=== PATIENT | male | born 1960 | race Caucasian/White ===

== ENCOUNTER → 2023-04-03 | Outpatient (CLI) | payer MEDICARE | END | disposition home or self-care (01) | LOC: CT 13:46 | PROVIDERS: ATTEND Internal Medicine Critical Care Medicine | DX: J84.10 Pulmonary fibrosis, unspecified (principal); N28.1 Cyst of kidney, acquired; Z95.1 Presence of aortocoronary bypass graft; M43.8X3 Other specified deforming dorsopathies, cervicothoracic region; K44.9 Diaphragmatic hernia without obstruction or gangrene; Z98.890 Other specified postprocedural states; R91.8 Other nonspecific abnormal finding of lung field | CPT/HCPCS: 71250 ==

== ENCOUNTER 2023-09-02 14:33 | Inpatient (IN) | payer MEDICARE ==
[~2023-09-02] VITALS: Ht 177.8 cm; Wt 88.9 kg
[~2023-09-02 14:33] MED LIST: AMLO5TAB88 PO; ERGO1250 PO; METH-818 PO; PANT40TA51 PO; ROSU40TA PO
[2023-09-02] MEDS ORDERED: ONDANSETRON HCL 4MG/2ML INJ IV PRN (16:30)
[2023-09-02] MEDS ORDERED: CLONIDINE 0.1MG TABLET PO PRN (16:30)
[2023-09-02] MEDS ORDERED: MAGNESIUM/ALUMINUM HYDROXIDE/SIMETHICONE 30ML UDC PO PRN (16:30)
[2023-09-02] MEDS ORDERED: ACETAMINOPHEN 325MG TABLET PO PRN (16:30)
[2023-09-02] MEDS ORDERED: DIPHENHYDRAMINE 50MG/ML VIAL IV PRN (16:30)
[2023-09-02] MEDS: METHADONE HCL 10MG TABLET PO SCH ×2 (17:20→21:27)
[2023-09-02 17:35] LABS: PROTHROMBIN TIME 11.1 sec (9.6-11.0)
[2023-09-02 17:53] VITALS: BP 124/77; PULSE 73; RESP 18; TEMP 98.4
[2023-09-02] MEDS: ENOXAPARIN 40MG/0.4ML SYR SUBCUT SCH (18:00)
[2023-09-02 20:00] VITALS: BP 143/79; PULSE 79; RESP 19; TEMP 97.9
[2023-09-02] MEDS: PREGABALIN 75MG CAPSULE PO SCH (21:24)
[2023-09-02] MEDS: PANTOPRAZOLE 40MG DR TABLET PO SCH (21:25)
[2023-09-02] MEDS: ATORVASTATIN CALCIUM 40MG TABLET PO SCH (21:26)
[2023-09-02] MEDS: SUCRALFATE 1G TABLET PO SCH (21:26)
[2023-09-02] MEDS: CLONAZEPAM 0.25 MG TAB.RAPDIS PO SCH (21:32)
[2023-09-03] VITALS: BP 138/84; PULSE 84; RESP 19; TEMP 97.7
[2023-09-03 04:00] VITALS: BP 140/78; PULSE 92; RESP 19; TEMP 98.9
[2023-09-03] MEDS: DEXT 5%/0.45% NACL 1000ML 1,000 ML IV SCH (06:32)
[2023-09-03 08:00] VITALS: BP 118/76; PULSE 102; RESP 19; TEMP 98.1
[2023-09-03] MEDS: MULTIVITAMINS,THER W-MINERALS TABLET PO SCH (09:07)
[2023-09-03] MEDS: PREGABALIN 50 MG CAPSULE PO SCH (09:12)
[2023-09-03] MEDS: PREDNISONE 5MG TABLET PO SCH (09:12)
[2023-09-03] MEDS: FISH OIL/OMEGA-3 FATTY ACIDS 1000MG CAPSULE PO SCH (09:13)
[2023-09-03] MEDS: AMLODIPINE 5MG TABLET PO SCH (09:13)
[2023-09-03] MEDS: CELECOXIB 200MG CAPSULE PO SCH (09:13)
[2023-09-03] MEDS: XELJANZ 11 MG PO SCH (09:18)
[2023-09-03 12:00] VITALS: BP 109/61; PULSE 70; RESP 18; TEMP 97.5
[2023-09-03] MEDS: ACETAMINOPHEN 325MG TABLET PO PRN (12:33)
[2023-09-03 16:00] VITALS: BP 120/69; PULSE 67; RESP 18; TEMP 96.6
[2023-09-03] MEDS ORDERED: POLYMYXIN B SULFATE 500000 UNITS/VIAL ONE (17:15)
[2023-09-03] MEDS ORDERED: LIDOCAINE HCL/EPINEPHRINE 1%-EPI 1:100,000 20 ML VIAL ONE (17:15)
[2023-09-03] MEDS ORDERED: VANCOMYCIN HCL 1 GM/VIAL ONE ×2 (17:15→19:22)
[2023-09-03] MEDS ORDERED: MIDAZOLAM HCL 2 MG/2 ML VIAL ONE (18:07)
[2023-09-03] MEDS ORDERED: PROPOFOL 200MG/20ML VIAL IV ONE (18:07)
[2023-09-03] MEDS ORDERED: FENTANYL CITRATE/PF 50MCG/ML 2ML VIAL ONE (18:07)
[2023-09-03] MEDS ORDERED: LIDOCAINE HCL 1% 10 MG/ML 10ML VIAL ONE (18:07)
[2023-09-03] MEDS ORDERED: HYDROMORPHONE HCL/PF 2MG/ML CPJ ONE (18:16)
[2023-09-03] MEDS ORDERED: LABETALOL 5MG/ML SYR 20 MG/4 ML SYRINGE IV PRN (18:45)
[2023-09-03] MEDS ORDERED: ONDANSETRON HCL 4MG/2ML INJ IV PRN (18:45)
[2023-09-03] MEDS ORDERED: MEPERIDINE HCL/PF 25MG/ML CPJ IV PRN (18:45)
[2023-09-03] MEDS: HYDROMORPHONE HCL/PF 2MG/ML CPJ IV PRN (21:00)
[2023-09-03] MEDS ORDERED: CEFAZOLIN SODIUM 2000MG/VIAL IJ SCH (22:00)
[2023-09-03] MEDS: CEFAZOLIN 2GM/100ML 100 ML IV SCH (23:04)
[2023-09-04] VITALS: BP 139/81; PULSE 92; RESP 19; TEMP 96.8
[2023-09-04] MEDS: HYDROCODONE/ACETAMINOPHEN 10/325MG TABLET PO PRN (00:42)
[2023-09-04 04:00] VITALS: BP 128/71; PULSE 91; RESP 19; TEMP 97.7
[2023-09-04 08:00] VITALS: BP 131/70; PULSE 86; RESP 19; TEMP 98.2
[2023-09-04 16:00] VITALS: BP 121/77; PULSE 72; RESP 19; TEMP 97.5
[2023-09-04 20:00] VITALS: BP 126/76; PULSE 87; RESP 18; TEMP 99.3
[2023-09-04] MEDS: TRAZODONE HCL 50MG TABLET PO PRN (23:25)
[2023-09-05] VITALS: BP 116/65; PULSE 86; RESP 18; TEMP 99.6
[2023-09-05 04:00] VITALS: BP 136/76; PULSE 78; RESP 18; TEMP 99.1
[2023-09-05 08:00] VITALS: BP 119/65; PULSE 75; RESP 19; TEMP 97.7
[2023-09-05 12:00] VITALS: BP 100/52; PULSE 72; RESP 18; TEMP 97.5
[2023-09-05 14:17] VITALS: BP 100/92; PULSE 72; TEMP 97.3
[2023-09-05 15:05] VITALS: BP 100/92; PULSE 72; RESP 18
[2023-09-08] MEDS ORDERED: ERGOCALCIFEROL 50000UNITS CAPSULE PO SCH (09:00)
== END 2023-09-05 15:16 | DRG 493 ==
LOC: 6EST 14:33
PROVIDERS: ADMIT Internal Medicine; ATTEND Internal Medicine
PROC: 0QSH04Z Reposition Left Tibia with Internal Fixation Device, Open Approach (ICD-10-PCS; principal; 2023-09-04)
PROC: 0QSK04Z Reposition Left Fibula with Internal Fixation Device, Open Approach (ICD-10-PCS; 2023-09-04)
DX: S82.392A Other fracture of lower end of left tibia, initial encounter for closed fracture (principal); J84.9 Interstitial pulmonary disease, unspecified; K21.9 Gastro-esophageal reflux disease without esophagitis; I10 Essential (primary) hypertension; S82.832A Other fracture of upper and lower end of left fibula, initial encounter for closed fracture; E78.00 Pure hypercholesterolemia, unspecified; F14.10 Cocaine abuse, uncomplicated; Z96.643 Presence of artificial hip joint, bilateral; X58.XXXA Exposure to other specified factors, initial encounter; Y93.89 Activity, other specified; Y92.89 Other specified places as the place of occurrence of the external cause; Y99.8 Other external cause status
CPT/HCPCS: 36415; 71045; 73610; 76000; 87426; 97162; 97166; J0690; J1170; J1650; J2250; J2704; J3010; J3370; J3490; J7030; J7512; Q4051; C1713

== ENCOUNTER 2023-09-05 15:56 | Inpatient (IN) | payer MEDICARE ==
[~2023-09-05] VITALS: Ht 177.8 cm; Wt 88.5 kg
[2023-09-05 15:30] VITALS: BP 122/63; PULSE 73; RESP 18; TEMP 98.1
[2023-09-05] MEDS ORDERED: CLONIDINE 0.1MG TABLET PO PRN (17:15)
[2023-09-05] MEDS ORDERED: DIPHENHYDRAMINE 50MG/ML VIAL IV PRN (17:15)
[2023-09-05] MEDS ORDERED: ONDANSETRON HCL 4MG/2ML INJ IV PRN (17:15)
[2023-09-05] MEDS ORDERED: MAGNESIUM/ALUMINUM HYDROXIDE/SIMETHICONE 30ML UDC PO PRN (17:15)
[2023-09-05] MEDS ORDERED: ACETAMINOPHEN 325MG TABLET PO PRN ×2 (17:15)
[2023-09-05] MEDS ORDERED: NALOXONE HCL 0.4MG/ML VIAL IV PRN (18:15)
[2023-09-05] MEDS: [UNRECOGNIZED DRUG - OTHER] PO SCH (18:30)
[2023-09-05 18:39] LABS: BASOPHILS % 0.8 % (0.0-2.0); EOSINOPHILS % 0.7 % (0.0-5.0); HEMATOCRIT. 30.5 % (42.0-52.0); LYMPHOCYTES % 6.7 % (20.0-50.0); MEAN CORPUSCULAR HEMOGLOBIN 28.6 pg (28.0-32.0); MEAN CORPUSCULAR HGB CONC 32.7 g/dL (31.0-37.0); MEAN CORPUSCULAR VOLUME 87.6 fL (80.0-94.0); MEAN PLATELET VOLUME 8.6 fl (7.4-10.4); MONOCYTES % 7.1 % (2.0-8.0); NEUTROPHILS % 84.7 % (40.0-76.0); PLATELET 303 x1000/uL (130-400); RED BLOOD CELL COUNT 3.48 mill/uL (4.7-6.1); RED CELL DISTRIBUTION WIDTH 17.7 % (11.6-14.6); WHITE BLOOD COUNT 8.7 x1000/uL (4.5-11.0)
[2023-09-05] MEDS: PREGABALIN 75MG CAPSULE PO SCH (18:39)
[2023-09-05 18:42] LABS: DIFFERENTIAL COMMENT 1
[2023-09-05 18:48] LABS: CHLORIDE 103 mEq/L (98-107); POTASSIUM 4.4 mEq/L (3.5-5.1); SODIUM 136 mEq/L (136-145)
[2023-09-05 18:49] LABS: CARBON DIOXIDE 27 mEq/L (21-32)
[2023-09-05 18:50] LABS: CALCIUM 9.9 mg/dL (8.7-10.4)
[2023-09-05 18:54] LABS: CREATININE 0.9 mg/dL (0.6-1.3)
[2023-09-05 18:55] LABS: GLUCOSE 115 mg/dL (70-105); UREA NITROGEN BLOOD 17 mg/dL (9-23)
[2023-09-05 20:00] VITALS: BP_SYST 100; BP_SYST 123; BP_DIAS 43; BP_DIAS 76; PULSE 80; PULSE 82; RESP 18; TEMP 98.6; TEMP 98.9
[2023-09-05] MEDS ORDERED: TRAZODONE HCL 50MG TABLET PO PRN (21:00)
[2023-09-05] MEDS: PANTOPRAZOLE 40MG DR TABLET PO SCH (21:24)
[2023-09-05] MEDS: METHADONE HCL 10MG TABLET PO SCH (21:24)
[2023-09-05] MEDS: CLONAZEPAM 0.25 MG TAB.RAPDIS PO SCH (21:24)
[2023-09-05] MEDS: ATORVASTATIN CALCIUM 40MG TABLET PO SCH (21:24)
[2023-09-05] MEDS: SUCRALFATE 1G TABLET PO SCH (21:24)
[2023-09-05] MEDS: ENOXAPARIN 40MG/0.4ML SYR SUBCUT SCH (21:25)
[2023-09-06] MEDS: HYDROCODONE/ACETAMINOPHEN 10/325MG TABLET PO PRN (04:41)
[2023-09-06] MEDS: DEXT 5%/0.45% NACL 1000ML 1,000 ML IV SCH (05:48)
[2023-09-06 08:00] VITALS: BP 123/65; PULSE 74; RESP 18; TEMP 97.2
[2023-09-06] MEDS: MULTIVITAMINS,THER W-MINERALS TABLET PO SCH (09:21)
[2023-09-06] MEDS: FISH OIL/OMEGA-3 FATTY ACIDS 1000MG CAPSULE PO SCH (09:21)
[2023-09-06] MEDS: PREDNISONE 5MG TABLET PO SCH (09:21)
[2023-09-06] MEDS: CELECOXIB 200MG CAPSULE PO SCH (09:23)
[2023-09-06] MEDS: PREGABALIN 50 MG CAPSULE PO SCH (09:23)
[2023-09-06] MEDS: AMLODIPINE 5MG TABLET PO SCH (09:23)
[2023-09-06] MEDS: METHADONE HCL 10MG TABLET PO SCH (15:00)
[2023-09-06] MEDS ORDERED: ENOXAPARIN 40MG/0.4ML SYR SUBCUT SCH (18:00)
[2023-09-06 20:00] VITALS: BP 108/66; PULSE 95; RESP 18; TEMP 97.5
[2023-09-07 08:00] VITALS: BP 115/67; PULSE 73; RESP 19; TEMP 98.3
[2023-09-07] MEDS ORDERED: *PATIENT'S OWN MEDICATION STORAGE XX SCH (17:15)
[2023-09-07 20:00] VITALS: BP 126/69; PULSE 65; RESP 18; TEMP 97.8
[2023-09-08 08:00] VITALS: BP 124/81; PULSE 75; RESP 19; TEMP 97.3
[2023-09-08] MEDS: ERGOCALCIFEROL 50000UNITS CAPSULE PO SCH (08:43)
[2023-09-08 20:00] VITALS: BP 129/75; PULSE 75; RESP 18; TEMP 98.1
[2023-09-09 08:00] VITALS: BP 105/65; PULSE 77; RESP 19; TEMP 96.7
[2023-09-09 20:00] VITALS: BP 122/66; PULSE 74; RESP 18; TEMP 98.9
[2023-09-10 04:32] VITALS: BP 123/63; PULSE 66; RESP 18
[2023-09-10] MEDS: CELECOXIB 200MG CAPSULE PO SCH (06:59)
[2023-09-10 08:00] VITALS: BP 122/64; PULSE 60; RESP 18; TEMP 97.2
[2023-09-10 19:37] VITALS: BP 127/77; PULSE 74; RESP 20; TEMP 96.9
[2023-09-11] MEDS: HYDROCODONE/ACETAMINOPHEN 10/325MG TABLET PO PRN (04:12)
[2023-09-11 08:00] VITALS: BP 111/62; PULSE 61; RESP 20; TEMP 97.9
[2023-09-11 20:00] VITALS: BP 107/70; PULSE 89; RESP 18; TEMP 99
[2023-09-12 08:00] VITALS: BP 115/72; PULSE 74; RESP 19; TEMP 99.4
[2023-09-12 20:00] VITALS: BP 133/70; PULSE 77; RESP 20; TEMP 97.5
[2023-09-13] MEDS: CELECOXIB 200MG CAPSULE PO SCH (06:00)
[2023-09-13 08:00] VITALS: BP 159/75; PULSE 71; RESP 19; TEMP 99
[2023-09-13 20:00] VITALS: BP 94/59; PULSE 68; RESP 22; TEMP 98.1
[2023-09-14 06:39] LABS: CARBON DIOXIDE 30 mEq/L (21-32); CHLORIDE 101 mEq/L (98-107); POTASSIUM 4.3 mEq/L (3.5-5.1); SODIUM 137 mEq/L (136-145)
[2023-09-14 06:40] LABS: CALCIUM 9.3 mg/dL (8.7-10.4)
[2023-09-14 06:45] LABS: GLUCOSE 71 mg/dL (70-105); UREA NITROGEN BLOOD 15 mg/dL (9-23)
[2023-09-14 07:22] LABS: BASOPHILS % 0.4 % (0.0-2.0); EOSINOPHILS % 1.5 % (0.0-5.0); HEMATOCRIT. 31.7 % (42.0-52.0); HEMOGLOBIN. 10.3 g/dL (14.0-18.0); LYMPHOCYTES % 8.2 % (20.0-50.0); MEAN CORPUSCULAR HEMOGLOBIN 27.9 pg (28.0-32.0); MEAN CORPUSCULAR HGB CONC 32.6 g/dL (31.0-37.0); MEAN CORPUSCULAR VOLUME 85.7 fL (80.0-94.0); MEAN PLATELET VOLUME 8.9 fl (7.4-10.4); NEUTROPHILS % 86.9 % (40.0-76.0); PLATELET 309 x1000/uL (130-400); RED CELL DISTRIBUTION WIDTH 18.4 % (11.6-14.6); WHITE BLOOD COUNT 8.4 x1000/uL (4.5-11.0)
[2023-09-14 08:00] VITALS: BP 106/59; PULSE 73; RESP 20; TEMP 98
[2023-09-14 19:46] VITALS: BP 124/60; PULSE 75; RESP 20; TEMP 97.5
[2023-09-15 08:00] VITALS: BP 110/44; PULSE 63; RESP 18; TEMP 97.7
[2023-09-15] MEDS ORDERED: NALOXONE HCL 0.4MG/ML VIAL IV PRN (15:45)
[2023-09-15] MEDS: METHADONE HCL 10MG TABLET PO SCH ×2 (15:46→21:04)
[2023-09-15 20:00] VITALS: BP 137/81; PULSE 94; RESP 18; TEMP 98.8
[2023-09-15] MEDS: CLONAZEPAM 0.5MG TABLET PO SCH (22:22)
[2023-09-16] MEDS: HYDROCODONE/ACETAMINOPHEN 10/325MG TABLET PO PRN (04:24)
[2023-09-16 08:00] VITALS: BP 126/69; PULSE 65; RESP 18; TEMP 97.2
[2023-09-16 08:25] VITALS: RESP 18
[2023-09-16] MEDS ORDERED: CLONAZEPAM 0.5MG TABLET PO SCH (09:00)
[2023-09-16 10:32] VITALS: BP 126/69; PULSE 65; TEMP 97.2; O2SAT 96
[2023-09-16 11:40] VITALS: BP 126/69; PULSE 65; TEMP 97.2; O2SAT 96
[2023-09-16] MEDS ORDERED: CLON0.5T4 PO ×2 (11:52→11:57)
[2023-09-16] MEDS ORDERED: PREG25CA19 PO (11:54)
[2023-09-16] MEDS ORDERED: HYDR-4350 PO (12:26)
== END 2023-09-16 12:35 | disposition home health service (06) | DRG 563 ==
PROVIDERS: ADMIT Psychiatry & Neurology Neurology; ATTEND Internal Medicine
DX: S82.832A Other fracture of upper and lower end of left fibula, initial encounter for closed fracture (principal); J84.9 Interstitial pulmonary disease, unspecified; E27.1 Primary adrenocortical insufficiency; F14.10 Cocaine abuse, uncomplicated; I10 Essential (primary) hypertension; K21.9 Gastro-esophageal reflux disease without esophagitis; G62.9 Polyneuropathy, unspecified; G89.4 Chronic pain syndrome; K44.9 Diaphragmatic hernia without obstruction or gangrene; D64.9 Anemia, unspecified; M85.80 Other specified disorders of bone density and structure, unspecified site; M79.651 Pain in right thigh; M72.2 Plantar fascial fibromatosis; E78.00 Pure hypercholesterolemia, unspecified; Z96.643 Presence of artificial hip joint, bilateral; Z91.81 History of falling; Z79.52 Long term (current) use of systemic steroids; W18.30XA Fall on same level, unspecified, initial encounter; Y93.89 Activity, other specified; Y92.89 Other specified places as the place of occurrence of the external cause; Y99.8 Other external cause status
CPT/HCPCS: 36415; 72192; 73590; 73700; 80048; 85025; 97110; 97150; 97162; 97166; 97530; 97535; 97542; J1650; J7512

== ENCOUNTER → 2023-11-16 | Outpatient (CLI) | payer MEDICARE ==
[~2023-11-16] MED LIST changes: +CLON0.5T4 PO; +HYDR-4350 PO; +PREG25CA19 PO
== END | disposition home or self-care (01) ==
LOC: RAD 13:00
DX: S82.302H Unspecified fracture of lower end of left tibia, subsequent encounter for open fracture type I or II with delayed healing (principal); S82.83 Other fracture of upper and lower end of fibula; X58.XXXD Exposure to other specified factors, subsequent encounter
CPT/HCPCS: 73590

== ENCOUNTER 2023-12-14 16:48 | Inpatient (IN) | payer MEDICARE ==
[~2023-12-14] VITALS: Ht 175.3 cm; Wt 90.7 kg
[2023-12-14] MEDS: SODIUM CHLORIDE 0.9% 1000ML BAG (SEPSIS BOLUS) IV ONE (18:26)
[2023-12-14] MEDS: CEFTRIAXONE 1GM/50ML 50 ML IV ONE (18:35)
[2023-12-14 18:44] LABS: HEMATOCRIT. 35.5 % (42.0-52.0); HEMOGLOBIN. 11.2 g/dL (14.0-18.0); MEAN CORPUSCULAR HEMOGLOBIN 26.1 pg (28.0-32.0); MEAN CORPUSCULAR HGB CONC 31.6 g/dL (31.0-37.0); MEAN CORPUSCULAR VOLUME 82.6 fL (80.0-94.0); PLATELET 452 x1000/uL (130-400); RED CELL DISTRIBUTION WIDTH 20.7 % (11.6-14.6); WHITE BLOOD COUNT 19.3 x1000/uL (4.5-11.0)
[2023-12-14 18:45] LABS: DIFFERENTIAL COMMENT 1
[2023-12-14 18:53] LABS: CHLORIDE 99 mEq/L (98-107); POTASSIUM 3.8 mEq/L (3.5-5.1); SODIUM 132 mEq/L (136-145)
[2023-12-14 18:54] LABS: CALCIUM 9.6 mg/dL (8.7-10.4); CARBON DIOXIDE 24 mEq/L (21-32)
[2023-12-14 18:55] LABS: INR 1.1; PARTIAL THROMBOPLASTIN TIME 31.8 sec (23.4-31.0); PROTHROMBIN TIME 12.5 sec (9.6-11.0)
[2023-12-14 18:59] LABS: GLUCOSE 148 mg/dL (70-105); TROPONIN I HIGH SENSITIVITY 9 ng/L (3.0-53); UREA NITROGEN BLOOD 18 mg/dL (9-23)
[2023-12-14 19:01] LABS: ALANINE AMINOTRANSFERASE 18 IU/L (10-49); ALBUMIN 4.5 g/dL (3.2-4.8); ASPARTATE AMINOTRANSFERASE 23 IU/L (<34); BILIRUBIN TOTAL 0.5 mg/dL (0.1-1.0); PROTEIN TOTAL 7.7 g/dL (6.0-8.3)
[2023-12-14] MEDS: AZITHROMYCIN 500MG/250ML 250 ML IV ONE (19:07)
[2023-12-14 19:27] LABS: PLATELET ESTIMATE NORMAL
[2023-12-14 19:42] LABS: CREATININE 1.4 mg/dL (0.6-1.3)
[2023-12-14 20:33] LABS: LACTIC ACID 3.7 mmol/L (0.4-2.0)
[2023-12-14] MEDS ORDERED: CLONIDINE 0.1MG TABLET PO PRN (20:45)
[2023-12-14] MEDS ORDERED: DOCUSATE SODIUM 100MG CAPSULE PO PRN (20:45)
[2023-12-14] MEDS ORDERED: ONDANSETRON HCL 4MG/2ML INJ IV PRN (20:45)
[2023-12-14] MEDS ORDERED: ACETAMINOPHEN 325MG TABLET PO PRN ×2 (20:45)
[2023-12-14] MEDS: SODIUM CHLORIDE 0.9% 1,000 ML IV SCH (21:07)
[2023-12-14 21:26] LABS: IRON 18 ug/dL (65-175)
[2023-12-14 21:32] LABS: FOLIC ACID (FOLATE) SERUM 17.27 ng/mL (>5.38)
[2023-12-14 21:33] LABS: VITAMIN B12 SERUM 1591 pg/mL (211-911)
[2023-12-14 21:39] VITALS: PULSE 77; RESP 20; O2SAT 97
[2023-12-14] MEDS: IPRATROPIUM/ALBUTEROL 0.5-3(2.5)MG/3ML NEB HHN PRN (21:39)
[2023-12-14 21:57] LABS: TOTAL IRON BINDING CAPACITY > 670 ug/dl (250-425)
[2023-12-14 23:30] LABS: CREATINE KINASE 25 IU/L (46-171)
[2023-12-15] MEDS: ASPIRIN 81MG EC TABLET PO SCH (01:27)
[2023-12-15] MEDS: FAMOTIDINE 20MG TABLET PO SCH (07:50)
[2023-12-15] MEDS: FERROUS SULFATE 325MG TABLET PO SCH (10:19)
[2023-12-15] MEDS: CEFTRIAXONE 1GM/50ML 50 ML IV SCH (12:25)
[2023-12-15 13:17] LABS: HEMATOCRIT. 35.1 % (42.0-52.0); HEMOGLOBIN. 10.6 g/dL (14.0-18.0); MEAN CORPUSCULAR HEMOGLOBIN 25.4 pg (28.0-32.0); MEAN CORPUSCULAR HGB CONC 30.3 g/dL (31.0-37.0); MEAN CORPUSCULAR VOLUME 83.9 fL (80.0-94.0); MEAN PLATELET VOLUME 8.9 fl (7.4-10.4); PLATELET 351 x1000/uL (130-400); RED BLOOD CELL COUNT 4.18 mill/uL (4.7-6.1); RED CELL DISTRIBUTION WIDTH 21.5 % (11.6-14.6); WHITE BLOOD COUNT 12.5 x1000/uL (4.5-11.0)
[2023-12-15 13:24] LABS: CARBON DIOXIDE 22 mEq/L (21-32); CHLORIDE 106 mEq/L (98-107); DIFFERENTIAL COMMENT 1; SODIUM 135 mEq/L (136-145)
[2023-12-15 13:25] LABS: CALCIUM 8.7 mg/dL (8.7-10.4)
[2023-12-15 13:30] LABS: GLUCOSE 91 mg/dL (70-105); TRIGLYCERIDE 149 mg/dL (0-150); UREA NITROGEN BLOOD 11 mg/dL (9-23)
[2023-12-15 13:31] LABS: CREATINE KINASE 49 IU/L (46-171); LDL CHOLESTEROL 26 mg/dL (5-100)
[2023-12-15 13:32] LABS: ALBUMIN 3.7 g/dL (3.2-4.8); CHOLESTEROL 69 mg/dL (<200); HDL CHOLESTEROL < 20 mg/dL (>55)
[2023-12-15 13:34] LABS: T4 FREE 1.02 ng/dL (0.89-1.76); THYROID STIMULATING HORMONE 2.58 uIU/mL (0.55-4.78)
[2023-12-15] MEDS: AZITHROMYCIN 500MG/250ML 250 ML IV SCH (14:23)
[2023-12-15 14:36] VITALS: PULSE 72; RESP 18; O2SAT 98
[2023-12-15] MEDS: IPRATROPIUM/ALBUTEROL 0.5-3(2.5)MG/3ML NEB HHN SCH (14:36)
[2023-12-15] MEDS: AZATHIOPRINE 50MG TABLET PO SCH (15:00)
[2023-12-15] MEDS: CLONAZEPAM 0.5MG TABLET PO SCH ×2 (15:00→22:33)
[2023-12-15 15:48] LABS: ANISOCYTOSIS 3+; HYPOCHROMASIA 1+; PLATELET ESTIMATE NORMAL
[2023-12-15 17:00] VITALS: BP 137/75; PULSE 127; RESP 20; TEMP 36.114; O2SAT 92
[2023-12-15 18:00] VITALS: BP 137/75; PULSE 100; RESP 20; TEMP 36.5292
[2023-12-15 20:00] VITALS: BP 137/65; PULSE 58; RESP 19; TEMP 36.83628
[2023-12-15] MEDS ORDERED: MEDICATION NOT ON FORMULARY EA (Rosuvastatin Calcium (Crestor) 40 MG) PO SCH (21:00)
[2023-12-15 22:26] LABS: CLARITY URINE CLOUDY (CLEAR); COLOR URINE DARK YELLOW (YELLOW); GLUCOSE URINE NEGATIVE (NEGATIVE); KETONES URINE NEGATIVE (NEGATIVE); LEUKOCYTE ESTERASE URINE NEGATIVE (NEGATIVE); NITRITE URINE NEGATIVE (NEGATIVE); OCCULT BLOOD URINE 1+ (NEGATIVE); PROTEIN URINE 2+ (NEGATIVE); SPECIFIC GRAVITY URINE 1.014 (1.005-1.030)
[2023-12-15] MEDS: METHADONE HCL 10MG TABLET PO SCH (22:32)
[2023-12-15] MEDS: ATORVASTATIN CALCIUM 40MG TABLET PO SCH (22:33)
[2023-12-15] MEDS: SUCRALFATE 1G TABLET PO SCH (22:33)
[2023-12-15] MEDS: PREDNISONE 10MG TABLET PO SCH (22:34)
[2023-12-15 22:39] LABS: BACTERIA URINE 2+; SQUAMOUS EPITHELIAL CELL URINE 1+ /lpf (RARE/1+)
[2023-12-15 22:40] LABS: WBC URINE 0-2 /hpf (0-2)
[2023-12-15 22:42] LABS: AMORPHOUS SEDIMENT URINE 1+ /lpf; COARSE GRANULAR CASTS URINE 0-5 /lpf
[2023-12-15 23:55] VITALS: PULSE 118; RESP 18; O2SAT 92
[2023-12-16] VITALS (9 sets, daily range): BP systolic 97–118; BP diastolic 50–65; PULSE 76–106; RESP 18–20; TEMP 24.4464–36.55848; O2SAT 96–99
[2023-12-16] MEDS: PANTOPRAZOLE 40MG DR TABLET PO SCH (06:24)
[2023-12-16 06:54] LABS: HEMATOCRIT 32.6 % (42.0-52.0); MEAN CORPUSCULAR HEMOGLOBIN 25.7 pg (28.0-32.0); MEAN CORPUSCULAR HGB CONC 30.8 g/dL (31.0-37.0); MEAN CORPUSCULAR VOLUME 83.3 fL (80.0-94.0); PLATELET 403 x1000/uL (130-400); RED BLOOD CELL COUNT 3.91 mill/uL (4.7-6.1); WHITE BLOOD COUNT 16.4 x1000/uL (4.5-11.0)
[2023-12-16 06:59] LABS: POTASSIUM 4.6 mEq/L (3.5-5.1)
[2023-12-16 07:01] LABS: CALCIUM 9.2 mg/dL (8.7-10.4)
[2023-12-16 07:05] LABS: CREATININE 1.3 mg/dL (0.6-1.3)
[2023-12-16] MEDS: AMLODIPINE 5MG TABLET PO SCH (09:00)
[2023-12-16] MEDS: CELECOXIB 200MG CAPSULE PO SCH (10:48)
[2023-12-16] MEDS: MULTIVITAMINS,THER W-MINERALS TABLET PO SCH (10:49)
[2023-12-16] MEDS: XELJANZ 11 MG PO SCH (10:50)
[2023-12-16] MEDS: PREGABALIN 50 MG CAPSULE PO SCH (10:50)
[2023-12-16] MEDS: CEFTRIAXONE 1GM/50ML 50 ML IV SCH (13:02)
[2023-12-16] MEDS: AZITHROMYCIN 500MG/250ML 250 ML IV SCH (14:41)
[2023-12-17] VITALS (11 sets, daily range): BP systolic 95–126; BP diastolic 56–74; PULSE 8–100; RESP 18–20; TEMP 33.8916–36.61404; O2SAT 93–99
[2023-12-17 06:56] LABS: HEMATOCRIT 27.1 % (42.0-52.0); HEMOGLOBIN 8.6 g/dL (14.0-18.0); MEAN CORPUSCULAR HEMOGLOBIN 25.9 pg (28.0-32.0); MEAN CORPUSCULAR HGB CONC 31.6 g/dL (31.0-37.0); MEAN CORPUSCULAR VOLUME 81.8 fL (80.0-94.0); PLATELET 316 x1000/uL (130-400); RED BLOOD CELL COUNT 3.31 mill/uL (4.7-6.1); WHITE BLOOD COUNT 9.4 x1000/uL (4.5-11.0)
[2023-12-17 07:00] LABS: CHLORIDE 106 mEq/L (98-107); POTASSIUM 3.5 mEq/L (3.5-5.1); SODIUM 137 mEq/L (136-145)
[2023-12-17 07:01] LABS: CALCIUM 8.7 mg/dL (8.7-10.4); CARBON DIOXIDE 23 mEq/L (21-32)
[2023-12-17 07:06] LABS: ALBUMIN 3.3 g/dL (3.2-4.8); CREATININE 1.1 mg/dL (0.6-1.3); GLUCOSE 124 mg/dL (70-105); UREA NITROGEN BLOOD 15 mg/dL (9-23)
[2023-12-17 07:26] LABS: PREALBUMIN < 5.0 mg/dl (10.0-40.0)
[2023-12-17] MEDS: GUAIFENESIN/DM 600MG/30MG ER TAB 12HR PO PRN (13:36)
[2023-12-17] MEDS: SODIUM CHLORIDE 3% FOR INH 4ML NEB INH SCH (20:25)
[2023-12-18] VITALS (10 sets, daily range): BP systolic 120–147; BP diastolic 60–75; PULSE 73–90; RESP 15–20; TEMP 36.16956–36.83628; O2SAT 19–100
[2023-12-18] MEDS: ACETYLCYSTEINE 200MG/ML 20% VIAL 4ML INH SCH (00:53)
[2023-12-18 10:19] LABS: HEMATOCRIT 30.7 % (42.0-52.0); HEMOGLOBIN 9.6 g/dL (14.0-18.0); MEAN CORPUSCULAR HEMOGLOBIN 25.8 pg (28.0-32.0); MEAN CORPUSCULAR HGB CONC 31.2 g/dL (31.0-37.0); MEAN CORPUSCULAR VOLUME 82.8 fL (80.0-94.0); PLATELET 372 x1000/uL (130-400); RED BLOOD CELL COUNT 3.71 mill/uL (4.7-6.1); RED CELL DISTRIBUTION WIDTH 20.5 % (11.6-14.6); WHITE BLOOD COUNT 10.5 x1000/uL (4.5-11.0)
[2023-12-18 10:32] LABS: CARBON DIOXIDE 28 mEq/L (21-32); CHLORIDE 105 mEq/L (98-107); POTASSIUM 3.9 mEq/L (3.5-5.1); SODIUM 140 mEq/L (136-145)
[2023-12-18 10:34] LABS: CALCIUM 9.3 mg/dL (8.7-10.4)
[2023-12-18 10:38] LABS: CREATININE 1.1 mg/dL (0.6-1.3); GLUCOSE 80 mg/dL (70-105); UREA NITROGEN BLOOD 13 mg/dL (9-23)
[2023-12-19] VITALS (9 sets, daily range): BP systolic 125–150; BP diastolic 67–90; PULSE 78–94; RESP 16–20; TEMP 36.114–36.6696; O2SAT 95–98
[2023-12-19 06:45] LABS: HEMATOCRIT 29.3 % (42.0-52.0); HEMOGLOBIN 9.3 g/dL (14.0-18.0); MEAN CORPUSCULAR HGB CONC 31.7 g/dL (31.0-37.0); MEAN CORPUSCULAR VOLUME 82.1 fL (80.0-94.0); PLATELET 397 x1000/uL (130-400); RED BLOOD CELL COUNT 3.57 mill/uL (4.7-6.1); RED CELL DISTRIBUTION WIDTH 20.6 % (11.6-14.6); WHITE BLOOD COUNT 11.8 x1000/uL (4.5-11.0)
[2023-12-19 06:54] LABS: CHLORIDE 104 mEq/L (98-107); POTASSIUM 3.3 mEq/L (3.5-5.1); SODIUM 137 mEq/L (136-145)
[2023-12-19 06:55] LABS: CARBON DIOXIDE 28 mEq/L (21-32)
[2023-12-19 06:56] LABS: CALCIUM 9.2 mg/dL (8.7-10.4)
[2023-12-19 07:00] LABS: CREATININE 0.8 mg/dL (0.6-1.3); GLUCOSE 67 mg/dL (70-105)
[2023-12-19 07:01] LABS: UREA NITROGEN BLOOD 9 mg/dL (9-23)
[2023-12-19] MEDS ORDERED: IOHEXOL-300 100 ML BOTTLE ONE (10:58)
[2023-12-19] MEDS ORDERED: CEPH500T MT (13:34)
== END 2023-12-19 18:46 | disposition home or self-care (01) | DRG 871 ==
LOC: ER 16:48 → MICUSO 18:26 → 5WST 12-15 11:22 → 7EST 12-15 16:48
PROVIDERS: ADMIT Hospitalist; ATTEND Hospitalist
DX: A41.9 Sepsis, unspecified organism (principal); D65 Disseminated intravascular coagulation [defibrination syndrome]; J18.9 Pneumonia, unspecified organism; J96.01 Acute respiratory failure with hypoxia; E87.1 Hypo-osmolality and hyponatremia; N17.9 Acute kidney failure, unspecified; E87.20 Acidosis, unspecified; J90 Pleural effusion, not elsewhere classified; D75.839 Thrombocytosis, unspecified; L40.50 Arthropathic psoriasis, unspecified; Z20.822 Contact with and (suspected) exposure to COVID-19; I25.10 Atherosclerotic heart disease of native coronary artery without angina pectoris; D50.9 Iron deficiency anemia, unspecified; I10 Essential (primary) hypertension; K21.9 Gastro-esophageal reflux disease without esophagitis; R79.89 Other specified abnormal findings of blood chemistry; B96.20 Unspecified Escherichia coli [E. coli] as the cause of diseases classified elsewhere; J45.909 Unspecified asthma, uncomplicated; K40.90 Unilateral inguinal hernia, without obstruction or gangrene, not specified as recurrent; K44.9 Diaphragmatic hernia without obstruction or gangrene; R32 Unspecified urinary incontinence; Z96.643 Presence of artificial hip joint, bilateral; L89.521 Pressure ulcer of left ankle, stage 1; G90.8 Other disorders of autonomic nervous system; Z95.1 Presence of aortocoronary bypass graft
CPT/HCPCS: 36415; 71045; 71250; 71260; 80048; 80053; 80061; 81003; 82040; 82270; 82550; 82607; 82746; 83540; 83550; 83605; 83880; 84134; 84145; 84153; 84439; 84443; 84484; 85025; 85027; 85379; 87070; 87077; 87186; 87420; 87426; 87804; 93005; 93970; 94640; 99285; J0456; J0696; J7030; J7500; J7512; J7608; Q9967

== ENCOUNTER 2023-12-23 10:39 | Inpatient (IN) | payer MEDICARE ==
[~2023-12-23] VITALS: Ht 177.8 cm; Wt 86.2 kg
[2023-12-23] MEDS: ACETYLCYSTEINE 200MG/ML 20% VIAL 4ML INH SCH (02:35)
[~2023-12-23 10:39] MED LIST changes: +CEPH500T MT; -METH-818 PO
[2023-12-23 12:30] VITALS: BP 132/75; PULSE 77; RESP 16; TEMP 37.39188; O2SAT 98
[2023-12-23] MEDS ORDERED: DOCUSATE SODIUM 100MG CAPSULE PO PRN (13:15)
[2023-12-23] MEDS ORDERED: ONDANSETRON HCL 4MG/2ML INJ IV PRN (13:15)
[2023-12-23] MEDS ORDERED: ACETAMINOPHEN 325MG TABLET PO PRN ×2 (13:15)
[2023-12-23] MEDS ORDERED: CLONIDINE 0.1MG TABLET PO PRN (13:15)
[2023-12-23] MEDS ORDERED: IPRATROPIUM/ALBUTEROL 0.5-3(2.5)MG/3ML NEB HHN PRN (13:15)
[2023-12-23 14:59] VITALS: BP 132/75; PULSE 77; RESP 16; TEMP 37.4188
[2023-12-23 16:00] VITALS: BP 131/72; PULSE 74; RESP 18; TEMP 36.61404; O2SAT 93
[2023-12-23 16:42] LABS: CHLORIDE 102 mEq/L (98-107); POTASSIUM 4.4 mEq/L (3.5-5.1); PROTHROMBIN TIME 11.5 sec (9.6-11.0); SODIUM 135 mEq/L (136-145)
[2023-12-23 16:43] LABS: CALCIUM 9.2 mg/dL (8.7-10.4); CARBON DIOXIDE 27 mEq/L (21-32)
[2023-12-23 16:47] LABS: HEMATOCRIT. 35.7 % (42.0-52.0); HEMOGLOBIN. 10.8 g/dL (14.0-18.0); MEAN CORPUSCULAR HEMOGLOBIN 25.6 pg (28.0-32.0); MEAN CORPUSCULAR HGB CONC 30.4 g/dL (31.0-37.0); MEAN CORPUSCULAR VOLUME 84.3 fL (80.0-94.0); MEAN PLATELET VOLUME 8.6 fl (7.4-10.4); PLATELET 500 x1000/uL (130-400); RED BLOOD CELL COUNT 4.23 mill/uL (4.7-6.1); RED CELL DISTRIBUTION WIDTH 20.6 % (11.6-14.6); WHITE BLOOD COUNT 19.4 x1000/uL (4.5-11.0)
[2023-12-23 16:48] LABS: CREATININE 1.2 mg/dL (0.6-1.3); GLUCOSE 168 mg/dL (70-105); UREA NITROGEN BLOOD 15 mg/dL (9-23)
[2023-12-23 16:56] LABS: DIFFERENTIAL COMMENT 1
[2023-12-23] MEDS: METHADONE HCL 10MG TABLET PO SCH (19:18)
[2023-12-23 20:00] VITALS: BP 143/80; PULSE 67; RESP 18; TEMP 36.50292; O2SAT 100
[2023-12-23] MEDS: PIPERACILLIN/TAZO 3.375G/50ML 50 ML IV SCH (21:36)
[2023-12-23] MEDS: VANCOMYCIN 1.5GM/250ML 250 ML IV NR (21:36)
[2023-12-23 22:45] LABS: ANISOCYTOSIS 2+; PLATELET ESTIMATE INCREASED
[2023-12-24] VITALS: BP 132/67; PULSE 63; RESP 18; TEMP 36.50292; O2SAT 99
[2023-12-24] MEDS: IPRATROPIUM/ALBUTEROL 0.5-3(2.5)MG/3ML NEB HHN SCH (02:35)
[2023-12-24 04:00] VITALS: BP 125/72; PULSE 57; RESP 18; TEMP 36.50292; O2SAT 99
[2023-12-24 05:32] LABS: CARBON DIOXIDE 29 mEq/L (21-32); CHLORIDE 104 mEq/L (98-107); POTASSIUM 3.7 mEq/L (3.5-5.1); SODIUM 138 mEq/L (136-145)
[2023-12-24 05:33] LABS: CALCIUM 8.8 mg/dL (8.7-10.4)
[2023-12-24 05:38] LABS: GLUCOSE 100 mg/dL (70-105); UREA NITROGEN BLOOD 13 mg/dL (9-23)
[2023-12-24 05:41] LABS: BASOPHILS % 0.1 % (0.0-2.0); EOSINOPHILS % 0.8 % (0.0-5.0); HEMATOCRIT. 32.1 % (42.0-52.0); HEMOGLOBIN. 10.2 g/dL (14.0-18.0); LYMPHOCYTES % 7.7 % (20.0-50.0); MEAN CORPUSCULAR HEMOGLOBIN 26.5 pg (28.0-32.0); MEAN CORPUSCULAR HGB CONC 31.9 g/dL (31.0-37.0); MEAN CORPUSCULAR VOLUME 83.2 fL (80.0-94.0); MEAN PLATELET VOLUME 8.6 fl (7.4-10.4); MONOCYTES % 3.7 % (2.0-8.0); NEUTROPHILS % 87.7 % (40.0-76.0); PLATELET 485 x1000/uL (130-400); RED BLOOD CELL COUNT 3.86 mill/uL (4.7-6.1); RED CELL DISTRIBUTION WIDTH 20.5 % (11.6-14.6); WHITE BLOOD COUNT 11.8 x1000/uL (4.5-11.0)
[2023-12-24 08:00] VITALS: BP 118/62; PULSE 58; RESP 18; TEMP 35.89176; O2SAT 97
[2023-12-24] MEDS: VANCOMYCIN 750MG/150ML (BAXTER) IV SCH (09:04)
[2023-12-24 12:39] VITALS: BP 147/70; PULSE 64; RESP 18; TEMP 36.16956
[2023-12-24] MEDS ORDERED: LIDOCAINE HCL 1% 10 MG/ML 10ML VIAL ONE (12:41)
[2023-12-24] MEDS ORDERED: SODIUM BICARBONATE 4% 2.4MEQ/5ML VIAL IV ONE (12:41)
[2023-12-24 16:00] VITALS: BP 123/65; PULSE 68; RESP 18; TEMP 36.89184; O2SAT 97
[2023-12-24 16:57] LABS: TRIGLYCERIDES BODY FLUID 110 mg/dL
[2023-12-24 20:00] VITALS: BP 122/77; PULSE 66; RESP 18; TEMP 36.55848; O2SAT 100
[2023-12-24] MEDS: VANCOMYCIN 1GM/200ML PMX (BAXTER) IV SCH (21:05)
[2023-12-24] MEDS: ATORVASTATIN CALCIUM 40MG TABLET PO SCH (21:05)
[2023-12-24] MEDS: AMLODIPINE 2.5MG TABLET PO SCH (21:06)
[2023-12-25] VITALS (10 sets, daily range): BP systolic 124–133; BP diastolic 70–87; PULSE 63–98; RESP 18–20; TEMP 36.44736–36.78072; O2SAT 92–100
[2023-12-25 06:04] LABS: CHLORIDE 103 mEq/L (98-107); POTASSIUM 3.7 mEq/L (3.5-5.1); SODIUM 138 mEq/L (136-145)
[2023-12-25 06:05] LABS: CALCIUM 9.7 mg/dL (8.7-10.4); CARBON DIOXIDE 28 mEq/L (21-32)
[2023-12-25 06:10] LABS: CREATININE 0.9 mg/dL (0.6-1.3); GLUCOSE 73 mg/dL (70-105); UREA NITROGEN BLOOD 10 mg/dL (9-23)
[2023-12-25 06:36] LABS: HEMATOCRIT. 37.4 % (42.0-52.0); HEMOGLOBIN. 11.6 g/dL (14.0-18.0); MEAN CORPUSCULAR HGB CONC 31.1 g/dL (31.0-37.0); MEAN CORPUSCULAR VOLUME 83.6 fL (80.0-94.0); MEAN PLATELET VOLUME 8.6 fl (7.4-10.4); PLATELET 468 x1000/uL (130-400); RED BLOOD CELL COUNT 4.47 mill/uL (4.7-6.1); RED CELL DISTRIBUTION WIDTH 21.2 % (11.6-14.6)
[2023-12-25 07:11] LABS: DIFFERENTIAL COMMENT 1
[2023-12-25] MEDS ORDERED: LEVO750T68 MT (14:29)
[2023-12-25] MEDS ORDERED: NALOXONE HCL 0.4MG/ML VIAL IV PRN (17:45)
[2023-12-25 19:29] LABS: PLATELET ESTIMATE NORMAL
[2023-12-25] MEDS ORDERED: VANCOMYCIN 750MG/150ML (BAXTER) IV SCH (21:00)
== END 2023-12-25 18:24 | disposition home or self-care (01) | DRG 177 ==
LOC: 8WST 11:55
PROVIDERS: ADMIT Family Medicine Adult Medicine; ATTEND Family Medicine Adult Medicine
PROC: 0W993ZZ Drainage of Right Pleural Cavity, Percutaneous Approach (ICD-10-PCS; principal; 2023-12-24)
DX: J86.9 Pyothorax without fistula (principal); J18.9 Pneumonia, unspecified organism; J96.01 Acute respiratory failure with hypoxia; I50.9 Heart failure, unspecified; I11.0 Hypertensive heart disease with heart failure; E78.5 Hyperlipidemia, unspecified; D50.9 Iron deficiency anemia, unspecified; I25.10 Atherosclerotic heart disease of native coronary artery without angina pectoris; J45.909 Unspecified asthma, uncomplicated; G89.4 Chronic pain syndrome; Z96.643 Presence of artificial hip joint, bilateral; K21.9 Gastro-esophageal reflux disease without esophagitis; Z20.822 Contact with and (suspected) exposure to COVID-19; K44.9 Diaphragmatic hernia without obstruction or gangrene; G62.9 Polyneuropathy, unspecified; D89.89 Other specified disorders involving the immune mechanism, not elsewhere classified; L40.50 Arthropathic psoriasis, unspecified; I45.10 Unspecified right bundle-branch block; Z79.899 Other long term (current) drug therapy; Z95.1 Presence of aortocoronary bypass graft; Z87.891 Personal history of nicotine dependence; Z87.01 Personal history of pneumonia (recurrent); Z79.891 Long term (current) use of opiate analgesic
CPT/HCPCS: 32555; 36415; 71045; 71250; 76705; 80048; 80202; 82040; 83615; 84145; 84155; 84478; 85025; 87077; 87186; 87426; 93005; 93306; J2543; J3370; J3490; J7608

== ENCOUNTER → 2024-03-07 | Outpatient (CLI) | payer MEDICARE ==
[~2024-03-07] MED LIST changes: -CEPH500T MT; -CLON0.5T4 PO; -HYDR-4350 PO; +LEVO750T68 MT
== END | disposition home or self-care (01) ==
LOC: CT 13:32
DX: S82.292D Other fracture of shaft of left tibia, subsequent encounter for closed fracture with routine healing (principal); S82.492D Other fracture of shaft of left fibula, subsequent encounter for closed fracture with routine healing; M25.775 Osteophyte, left foot; X58.XXXD Exposure to other specified factors, subsequent encounter
CPT/HCPCS: 73700

== ENCOUNTER → 2024-06-01 | Outpatient (CLI) | payer MEDICARE | END | disposition home or self-care (01) | LOC: CT 14:50 | PROVIDERS: ATTEND Internal Medicine Critical Care Medicine | DX: J98.11 Atelectasis (principal); I25.10 Atherosclerotic heart disease of native coronary artery without angina pectoris; K44.9 Diaphragmatic hernia without obstruction or gangrene; J90 Pleural effusion, not elsewhere classified; Z98.890 Other specified postprocedural states | CPT/HCPCS: 71250 ==

== ENCOUNTER 2024-06-20 13:04 | Inpatient (IN) | payer MEDICARE ==
[~2024-06-20] VITALS: Ht 177.8 cm; Wt 102.7 kg
[2024-06-20 16:00] VITALS: BP 138/79; PULSE 85; RESP 18; TEMP 36.3; O2SAT 93
[2024-06-20 16:43] VITALS: BP 138/79; PULSE 85; RESP 18; TEMP 36.3
[2024-06-20] MEDS ORDERED: DOCUSATE SODIUM 100MG CAPSULE PO PRN (17:30)
[2024-06-20] MEDS ORDERED: GUAIFENESIN 200MG/10ML SUGAR FREE UDC PO PRN (17:30)
[2024-06-20] MEDS ORDERED: ENOXAPARIN 40MG/0.4ML SYR SUBCUT SCH (17:30)
[2024-06-20] MEDS ORDERED: CLONIDINE 0.1MG TABLET PO PRN (17:30)
[2024-06-20] MEDS ORDERED: IPRATROPIUM/ALBUTEROL 0.5-3(2.5)MG/3ML NEB HHN PRN (17:30)
[2024-06-20] MEDS ORDERED: HYDROCODONE/ACETAMINOPHEN 10/325MG TABLET PO PRN (17:30)
[2024-06-20] MEDS ORDERED: PANTOPRAZOLE SODIUM 40 MG/VIAL IV NR (17:30)
[2024-06-20] MEDS ORDERED: ACETAMINOPHEN 325MG TABLET PO PRN (17:30)
[2024-06-20] MEDS ORDERED: MAGNESIUM/ALUMINUM HYDROXIDE/SIMETHICONE 30ML UDC PO PRN (17:30)
[2024-06-20] MEDS ORDERED: HYDROCODONE/ACETAMINOPHEN 5/325MG TABLET PO PRN (17:30)
[2024-06-20] MEDS ORDERED: DIPHENHYDRAMINE 50MG/ML VIAL IV PRN (17:30)
[2024-06-20] MEDS ORDERED: NA PHOS,M-B/NA PHOS,DI-BA ENEMA 118ML PR PRN (17:30)
[2024-06-20] MEDS ORDERED: FERR324T4 MT (18:40)
[2024-06-20] MEDS ORDERED: PRED5TAB48 PO (18:40)
[2024-06-20] MEDS ORDERED: TADA20TA PO (18:40)
[2024-06-20] MEDS ORDERED: TEST100V11 IM (18:40)
[2024-06-20] MEDS ORDERED: FLUO118.7 TP (18:40)
[2024-06-20] MEDS ORDERED: TACR30OI4 TP (18:40)
[2024-06-20] MEDS ORDERED: MECL-299 MT (18:40)
[2024-06-20] MEDS ORDERED: ERGO1250 PO (18:40)
[2024-06-20] MEDS ORDERED: CYAN50009 MT (18:40)
[2024-06-20] MEDS ORDERED: PREG150C MT (18:40)
[2024-06-20] MEDS ORDERED: PREG75CA MT (18:40)
[2024-06-20] MEDS ORDERED: AZEL137S10 BOTHNSTRLS (18:43)
[2024-06-20] MEDS ORDERED: AZAT50TA24 MT (18:43)
[2024-06-20] MEDS ORDERED: ATOR10TA69 MT (18:43)
[2024-06-20] MEDS ORDERED: CLON0.5T23 MT (18:43)
[2024-06-20] MEDS ORDERED: METH-819 MT (18:43)
[2024-06-20] MEDS ORDERED: TOFA11TA MT (18:43)
[2024-06-20] MEDS ORDERED: NALOXONE HCL 0.4MG/ML VIAL IV PRN (18:45)
[2024-06-20] MEDS ORDERED: CEFAZOLIN 2000MG PREMIX 50 ML IV SCH (19:00)
[2024-06-20] MEDS ORDERED: CEFAZOLIN 2GM/100ML 100 ML IV SCH (19:00)
[2024-06-20] MEDS ORDERED: NON FORMULARY MED XX SCH (19:15)
[2024-06-20 20:00] VITALS: BP 142/72; PULSE 83; RESP 19; TEMP 35.8; O2SAT 91; O2SAT 94
[2024-06-20] MEDS: CEFTRIAXONE 2GM/50ML 50 ML IV SCH (21:15)
[2024-06-20] MEDS: AZELASTINE HCL 137MCG/SPRAY NASAL PUMP BOTHNSTRLS SCH (21:40)
[2024-06-20 21:50] LABS: HEMATOCRIT. 36.1 % (42.0-52.0); HEMOGLOBIN. 12.2 g/dL (14.0-18.0); MEAN CORPUSCULAR HEMOGLOBIN 30.8 pg (28.0-32.0); MEAN CORPUSCULAR HGB CONC 33.8 g/dL (31.0-37.0); MEAN CORPUSCULAR VOLUME 91.2 fL (80.0-94.0); MEAN PLATELET VOLUME 9.1 fl (7.4-10.4); PLATELET 207 x1000/uL (130-400); RED BLOOD CELL COUNT 3.96 mill/uL (4.7-6.1); RED CELL DISTRIBUTION WIDTH 18.4 % (11.6-14.6); WHITE BLOOD COUNT 10.1 x1000/uL (4.5-11.0)
[2024-06-20 21:51] LABS: DIFFERENTIAL COMMENT 1
[2024-06-20 21:58] LABS: CHLORIDE 101 mEq/L (98-107); POTASSIUM 3.8 mEq/L (3.5-5.1); PROTHROMBIN TIME 11.1 sec (9.6-11.0); SODIUM 139 mEq/L (136-145)
[2024-06-20 21:59] LABS: CALCIUM 9.3 mg/dL (8.7-10.4); CARBON DIOXIDE 31 mEq/L (21-32)
[2024-06-20] MEDS ORDERED: TOFACITINIB CITRATE 11 MG PO SCH (22:00)
[2024-06-20 22:04] LABS: CREATININE 1.2 mg/dL (0.6-1.3); GLUCOSE 115 mg/dL (70-105); TRIGLYCERIDE 126 mg/dL (0-150); UREA NITROGEN BLOOD 20 mg/dL (9-23)
[2024-06-20 22:05] LABS: LDL CHOLESTEROL 43 mg/dL (5-100)
[2024-06-20 22:06] LABS: CHOLESTEROL 116 mg/dL (<200); HDL CHOLESTEROL 47 mg/dL (>55); TROPONIN I HIGH SENSITIVITY 36 ng/L (3.0-53)
[2024-06-20 22:11] LABS: PLATELET ESTIMATE NORMAL
[2024-06-20] MEDS: TOFACITINIB CITRATE 11 MG PO SCH (22:44)
[2024-06-21] VITALS: BP 134/75; PULSE 81; RESP 19; TEMP 35.9; O2SAT 93
[2024-06-21] MEDS: VANCOMYCIN 1.25GM PMX (XELLIA) 250 ML IV NR (02:59)
[2024-06-21 04:00] VITALS: BP 131/65; PULSE 83; RESP 18; TEMP 35.8; O2SAT 94
[2024-06-21 06:59] LABS: CHLORIDE 101 mEq/L (98-107); SODIUM 137 mEq/L (136-145)
[2024-06-21 07:00] LABS: CARBON DIOXIDE 27 mEq/L (21-32)
[2024-06-21 07:05] LABS: CREATININE 1.1 mg/dL (0.6-1.3); GLUCOSE 81 mg/dL (70-105); UREA NITROGEN BLOOD 14 mg/dL (9-23)
[2024-06-21 08:00] VITALS: BP 141/69; PULSE 81; RESP 20; TEMP 36.4; O2SAT 94
[2024-06-21] MEDS ORDERED: INFLUENZA VACCINE 05/PF 0.5 ML SYRINGE IM ONE (08:00)
[2024-06-21] MEDS: HYDROCODONE/ACETAMINOPHEN 5/325MG TABLET PO PRN (08:46)
[2024-06-21] MEDS: PANTOPRAZOLE SODIUM 40 MG/VIAL IV SCH (08:48)
[2024-06-21] MEDS: ATORVASTATIN CALCIUM 10MG TABLET PO SCH (08:48)
[2024-06-21] MEDS: PREGABALIN 75MG CAPSULE PO SCH (08:49)
[2024-06-21] MEDS: AMLODIPINE 5MG TABLET PO SCH (08:49)
[2024-06-21] MEDS: AZATHIOPRINE 50MG TABLET PO SCH (08:50)
[2024-06-21] MEDS ORDERED: PATIENT'S OWN MEDICATION PO SCH (09:00)
[2024-06-21 12:00] VITALS: BP 131/71; PULSE 78; RESP 19; TEMP 36.3; O2SAT 95
[2024-06-21] MEDS ORDERED: VANCOMYCIN 750MG/250ML IV SCH (13:00)
[2024-06-21] MEDS ORDERED: DEXTROSE 50% WATER 50ML SYRINGE IV PRN (14:45)
[2024-06-21 16:00] VITALS: BP 127/76; PULSE 97; RESP 19; TEMP 36.3; O2SAT 94
[2024-06-21] MEDS: BLOOD SUGAR DIAGNOSTIC STRIP TEST SCH (17:20)
[2024-06-21 17:30] LABS: HEMATOCRIT 35.1 % (42.0-52.0); HEMOGLOBIN 11.6 g/dL (14.0-18.0); MEAN CORPUSCULAR HEMOGLOBIN 29.9 pg (28.0-32.0); MEAN CORPUSCULAR HGB CONC 32.9 g/dL (31.0-37.0); MEAN CORPUSCULAR VOLUME 90.8 fL (80.0-94.0); PLATELET 192 x1000/uL (130-400); RED BLOOD CELL COUNT 3.86 mill/uL (4.7-6.1); RED CELL DISTRIBUTION WIDTH 18.3 % (11.6-14.6); WHITE BLOOD COUNT 7.4 x1000/uL (4.5-11.0)
[2024-06-21 20:00] VITALS: BP 126/70; PULSE 77; RESP 18; TEMP 36.6; O2SAT 100
[2024-06-22] VITALS: BP 152/85; PULSE 80; RESP 19; TEMP 36.8; O2SAT 97
[2024-06-22 04:00] VITALS: BP 146/76; PULSE 61; RESP 17; TEMP 36.8; O2SAT 98
[2024-06-22] MEDS: VANCOMYCIN 1.5GM/250ML 250 ML IV SCH (05:17)
[2024-06-22 06:21] LABS: BASOPHILS % 0.5 % (0.0-2.0); EOSINOPHILS % 2.5 % (0.0-5.0); HEMATOCRIT. 37.3 % (42.0-52.0); HEMOGLOBIN. 12.4 g/dL (14.0-18.0); LYMPHOCYTES % 9.5 % (20.0-50.0); MEAN CORPUSCULAR HEMOGLOBIN 29.5 pg (28.0-32.0); MEAN CORPUSCULAR HGB CONC 33.1 g/dL (31.0-37.0); MEAN CORPUSCULAR VOLUME 89.1 fL (80.0-94.0); MEAN PLATELET VOLUME 9.2 fl (7.4-10.4); MONOCYTES % 7.8 % (2.0-8.0); NEUTROPHILS % 79.7 % (40.0-76.0); PLATELET 224 x1000/uL (130-400); RED BLOOD CELL COUNT 4.19 mill/uL (4.7-6.1); RED CELL DISTRIBUTION WIDTH 18.4 % (11.6-14.6); WHITE BLOOD COUNT 8.9 x1000/uL (4.5-11.0)
[2024-06-22 06:54] LABS: CALCIUM 9.4 mg/dL (8.7-10.4); CHLORIDE 100 mEq/L (98-107); POTASSIUM 3.8 mEq/L (3.5-5.1); SODIUM 138 mEq/L (136-145)
[2024-06-22 06:55] LABS: CARBON DIOXIDE 28 mEq/L (21-32)
[2024-06-22 06:59] LABS: IRON 44 ug/dL (65-175)
[2024-06-22 07:00] LABS: CREATININE 1.1 mg/dL (0.6-1.3); GLUCOSE 85 mg/dL (70-105); TRIGLYCERIDE 117 mg/dL (0-150); UREA NITROGEN BLOOD 14 mg/dL (9-23)
[2024-06-22 07:01] LABS: LDL CHOLESTEROL 56 mg/dL (5-100)
[2024-06-22 07:02] LABS: CHOLESTEROL 128 mg/dL (<200); HDL CHOLESTEROL 44 mg/dL (>55)
[2024-06-22 07:07] LABS: TOTAL IRON BINDING CAPACITY > 670 ug/dl (250-425)
[2024-06-22 08:00] VITALS: BP 119/69; PULSE 81; RESP 18; TEMP 37.1; O2SAT 96
[2024-06-22 12:00] VITALS: BP 122/72; PULSE 80; RESP 8; TEMP 36.8; O2SAT 94
[2024-06-22] MEDS: SODIUM CHLORIDE 0.45% 1,000 ML IV SCH (13:58)
[2024-06-22] MEDS ORDERED: VANCOMYCIN HCL 1GM VIAL ONE (15:46)
[2024-06-22] MEDS ORDERED: LIDOCAINE HCL/EPINEPHRINE 1%-EPI 1:100,000 20ML VIAL ONE (15:46)
[2024-06-22] MEDS ORDERED: POLYMYXIN B SULFATE 500000 UNITS/VIAL ONE (15:46)
[2024-06-22] MEDS: CELECOXIB 200MG CAPSULE PO NR (16:00)
[2024-06-22] MEDS: METHADONE HCL 10MG TABLET PO SCH (17:00)
[2024-06-22] MEDS ORDERED: KETAMINE HCL 50 MG/ML 10ML ONE (17:06)
[2024-06-22] MEDS ORDERED: MIDAZOLAM HCL 2 MG/2 ML VIAL ONE (17:07)
[2024-06-22] MEDS ORDERED: FENTANYL CITRATE/PF 50MCG/ML 2ML VIAL ONE (17:08)
[2024-06-22] MEDS ORDERED: BUPIVACAINE HCL/PF 0.5% (5MG/ML) 10ML ONE (18:18)
[2024-06-22] MEDS: MIDAZOLAM HCL 2 MG/2 ML VIAL ONE (18:59)
[2024-06-22] MEDS ORDERED: LABETALOL 5MG/ML 4ML INJ IV PRN (19:00)
[2024-06-22] MEDS ORDERED: HYDROMORPHONE HCL/PF 1MG/ML INJ IV PRN ×2 (19:00)
[2024-06-22] MEDS ORDERED: GLYCOPYRROLATE 0.2 MG/ML 2ML VIAL IV PRN (19:00)
[2024-06-22] MEDS ORDERED: ONDANSETRON HCL 4MG/2ML INJ IV PRN (19:00)
[2024-06-22] MEDS ORDERED: HYDRALAZINE 20MG/ML VIAL IV PRN (19:00)
[2024-06-22] MEDS ORDERED: MIDAZOLAM HCL 5 MG/5 ML VIAL IV NR (19:00)
[2024-06-22 20:45] VITALS: BP 130/75; PULSE 89; RESP 13; TEMP 36.2; O2SAT 96
[2024-06-22] MEDS ORDERED: COLISTIMETHATE SODIUM 75MG/3ML NEB SOLN NEB SCH (21:00)
[2024-06-22] MEDS: TRAZODONE HCL 50MG TABLET PO SCH (21:33)
[2024-06-22] MEDS: SUCRALFATE 1G TABLET PO SCH (21:33)
[2024-06-23] VITALS: BP 157/97; PULSE 97; RESP 14; TEMP 36.2; O2SAT 95
[2024-06-23] MEDS: HYDROMORPHONE HCL/PF 1MG/ML INJ IV PRN (00:25)
[2024-06-23] MEDS: HYDROCODONE/ACETAMINOPHEN 10/325MG TABLET PO NR (01:41)
[2024-06-23] MEDS: ACETAMINOPHEN 325MG TABLET PO PRN (03:35)
[2024-06-23 04:00] VITALS: BP 133/78; PULSE 90; RESP 16; TEMP 36.3; O2SAT 97
[2024-06-23 08:00] VITALS: PULSE 69; RESP 20; TEMP 36.6; O2SAT 95
[2024-06-23] MEDS: PREDNISONE 10MG TABLET PO SCH (08:18)
[2024-06-23] MEDS: AMLODIPINE 2.5MG TABLET PO SCH (08:18)
[2024-06-23 12:00] VITALS: BP 122/69; PULSE 74; RESP 20; TEMP 36.6; O2SAT 95
[2024-06-23 13:18] LABS: HEMOGLOBIN. 11.6 g/dL (14.0-18.0); MEAN CORPUSCULAR HEMOGLOBIN 28.7 pg (28.0-32.0); MEAN CORPUSCULAR HGB CONC 32.3 g/dL (31.0-37.0); MEAN CORPUSCULAR VOLUME 88.9 fL (80.0-94.0); MEAN PLATELET VOLUME 9.2 fl (7.4-10.4); PLATELET 247 x1000/uL (130-400); RED BLOOD CELL COUNT 4.04 mill/uL (4.7-6.1); RED CELL DISTRIBUTION WIDTH 17.9 % (11.6-14.6); WHITE BLOOD COUNT 11.5 x1000/uL (4.5-11.0)
[2024-06-23 13:24] LABS: CHLORIDE 99 mEq/L (98-107); POTASSIUM 4.6 mEq/L (3.5-5.1); SODIUM 137 mEq/L (136-145)
[2024-06-23 13:25] LABS: CALCIUM 9.2 mg/dL (8.7-10.4); CARBON DIOXIDE 26 mEq/L (21-32)
[2024-06-23 13:30] LABS: CREATININE 1.2 mg/dL (0.6-1.3); GLUCOSE 141 mg/dL (70-105); UREA NITROGEN BLOOD 16 mg/dL (9-23)
[2024-06-23 13:53] LABS: DIFFERENTIAL COMMENT 1
[2024-06-23 15:19] LABS: PLATELET ESTIMATE NORMAL
[2024-06-23 15:20] LABS: ANISOCYTOSIS 1+
[2024-06-23 16:00] VITALS: BP 100/62; PULSE 77; RESP 18; TEMP 36.4; O2SAT 97
[2024-06-23 20:00] VITALS: BP 121/76; PULSE 71; RESP 20; TEMP 37; O2SAT 96
[2024-06-24] VITALS (7 sets, daily range): BP systolic 124–141; BP diastolic 73–84; PULSE 63–86; RESP 18–19; TEMP 35.7–36.4; O2SAT 96–99
[2024-06-24 09:09] LABS: CHLORIDE 104 mEq/L (98-107); POTASSIUM 4.3 mEq/L (3.5-5.1); SODIUM 140 mEq/L (136-145)
[2024-06-24 09:10] LABS: CARBON DIOXIDE 31 mEq/L (21-32)
[2024-06-24 09:15] LABS: CREATININE 1.1 mg/dL (0.6-1.3); GLUCOSE 129 mg/dL (70-105); UREA NITROGEN BLOOD 17 mg/dL (9-23)
[2024-06-24] MEDS: CEFAZOLIN 2000MG PREMIX 50 ML IV SCH (15:30)
[2024-06-28] MEDS ORDERED: CELE-116 PO (14:09)
== END 2024-06-24 19:36 | DRG 495 ==
LOC: 6EST 15:46
PROVIDERS: ADMIT Internal Medicine; ATTEND Internal Medicine
PROC: 0QPK04Z Removal of Internal Fixation Device from Left Fibula, Open Approach (ICD-10-PCS; principal; 2024-06-22)
PROC: 0QPH04Z Removal of Internal Fixation Device from Left Tibia, Open Approach (ICD-10-PCS; 2024-06-22)
DX: T84.623A Infection and inflammatory reaction due to internal fixation device of left tibia, initial encounter (principal); A41.9 Sepsis, unspecified organism; L03.116 Cellulitis of left lower limb; J84.9 Interstitial pulmonary disease, unspecified; T84.018A Broken internal joint prosthesis, other site, initial encounter; I10 Essential (primary) hypertension; J45.909 Unspecified asthma, uncomplicated; E78.5 Hyperlipidemia, unspecified; I25.10 Atherosclerotic heart disease of native coronary artery without angina pectoris; D50.9 Iron deficiency anemia, unspecified; K21.9 Gastro-esophageal reflux disease without esophagitis; Z96.643 Presence of artificial hip joint, bilateral; G62.9 Polyneuropathy, unspecified; D64.9 Anemia, unspecified; F17.210 Nicotine dependence, cigarettes, uncomplicated; X58.XXXA Exposure to other specified factors, initial encounter; Y83.8 Other surgical procedures as the cause of abnormal reaction of the patient, or of later complication, without mention of misadventure at the time of the procedure; Z95.1 Presence of aortocoronary bypass graft; Z79.899 Other long term (current) drug therapy; Y92.89 Other specified places as the place of occurrence of the external cause; I25.2 Old myocardial infarction
CPT/HCPCS: 36415; 71045; 73590; 73700; 76000; 80048; 80061; 80202; 82728; 82962; 83036; 83540; 83550; 83605; 83735; 84145; 84484; 85025; 85027; 85651; 86850; 86900; 87070; 87075; 87077; 87186; 88300; 93005; 93306; 93970; 97110; 97162; 97166; 97530; A4606; J0665; J0690; J0696; J0770; J1171; J2004; J2250; J2470; J3010; J3370; J3490; J7500; J7512